=== PATIENT | female | born 1960 | race Caucasian/White ===

== ENCOUNTER 2016-09-10 03:05 | Emergency (ER) | payer OTHER ==
[~2016-09-10] VITALS: Ht 162.6 cm; Wt 72.6 kg
[~2016-09-10 03:05] MED LIST: ACET65TA; CALC500T49; CIPR500T19; COLA100C2; IBUP600T; No Historical Meds; VICO5TAB
[2016-09-10] MEDS ORDERED: OXYC1TAB23 PO (03:20)
[2016-09-10] MEDS ORDERED: OXYC15TA76 PO (03:24)
[2016-09-10] MEDS ORDERED: ASPI32ECTA (03:24)
[2016-09-10] MEDS ORDERED: ONDA4TAB6 (03:24)
[2016-09-10] MEDS ORDERED: GLYCERIN ADULT SUPP PR ONE (05:00)
[2016-09-10] MEDS ORDERED: LACTULOSE 20 GM/30 ML SYRUP UD PO ONE (05:00)
[2016-09-10 05:27] VITALS: BP 133/73
== END 2016-09-10 05:28 | disposition home or self-care (01) ==
LOC: M ED 04:31
DX: K59.03 Drug induced constipation (principal); M54.9 Dorsalgia, unspecified; N28.9 Disorder of kidney and ureter, unspecified; Z79.899 Other long term (current) drug therapy; Z79.82 Long term (current) use of aspirin; Z88.0 Allergy status to penicillin

== ENCOUNTER → 2017-06-03 | Outpatient (CLI) | payer OTHER | LOC: M WUC 14:39 | DX: S93.421A Sprain of deltoid ligament of right ankle, initial encounter (principal) | CPT/HCPCS: 73610 ==

== ENCOUNTER 2018-07-11 00:44 | Emergency (ER) | payer OTHER ==
[~2018-07-11] VITALS: Ht 162.6 cm; Wt 72.7 kg
[~2018-07-11 00:44] MED LIST changes: +ASPI-255; +ONDA4TAB6; +OXYC15TA76 PO; +OXYC1TAB23 PO
[2018-07-11 01:20] LABS: BASO # 0.1 10^3/uL (0.0-0.2); BASO % 0.7 % (0.0-1.0); EOS # 0.1 10^3/uL (0.0-0.50); HEMATOCRIT 40.6 % (36.0-47.0); HEMOGLOBIN 13.1 g/dl (12.0-15.5); LYMPH # 2.4 10^3/uL (1.5-4.5); LYMPH % 23.9 % (24.0-44.0); MEAN CORPUSCULAR HEMOGLOBIN 27.9 pg (27.0-33.0); MEAN CORPUSCULAR HGB CONC 32.3 g/dl (32.0-36.5); MEAN CORPUSCULAR VOLUME 86.6 fl (80.0-96.0); MONO # 0.9 10^3/uL (0.0-0.8); MONO % 8.6 % (0.0-5.0); NEUTROPHILS # 6.5 10^3/uL (1.8-7.7); NEUTROPHILS % 65.4 % (36.0-66.0); PLATELET COUNT, AUTOMATED 430 10^3/uL (150-450); RED BLOOD COUNT 4.69 10^6/uL (4.00-5.40)
[2018-07-11 01:51] LABS: ALBUMIN 4.4 GM/DL (3.2-5.2); ALT/SGPT 68 U/L (12-78); BILIRUBIN,DIRECT 0.2 MG/DL (0.0-0.2); BILIRUBIN,TOTAL 0.6 MG/DL (0.2-1.0); BLOOD UREA NITROGEN 15 MG/DL (7-18); CALCIUM LEVEL 10.1 MG/DL (8.5-10.1); CARBON DIOXIDE LEVEL 28 MEQ/L (21-32); CHLORIDE LEVEL 103 MEQ/L (98-107); CREATININE FOR GFR 0.88 MG/DL (0.55-1.30); GLOMERULAR FILTRATION RATE > 60.0 (>51); GLUCOSE, FASTING 109 MG/DL (70-100); LIPASE 150 U/L (73-393); POTASSIUM SERUM 4.1 MEQ/L (3.5-5.1); SODIUM LEVEL 137 MEQ/L (136-145); TOTAL PROTEIN 8.1 GM/DL (6.4-8.2)
[2018-07-11 02:03] LABS: APPEARANCE, URINE MANUAL CLEAR (CLEAR); COLOR, URINE MANUAL YELLOW (YELLOW)
[2018-07-11 02:05] LABS: GLUCOSE, URINE (UA) MANUAL NEGATIVE (NEGATIVE); PROTEIN, URINE MANUAL TRACE mg/dL (NEGATIVE)
[2018-07-11 02:06] LABS: BILIRUBIN, URINE MANUAL NEGATIVE (NEGATIVE); BLOOD URINE MANUAL POSITIVE (NEGATIVE); KETONE, URINE MANUAL NEGATIVE (NEGATIVE); LEUKOCYTE ESTERASE, URINE MAN POSITIVE (NEGATIVE); NITRITE, URINE MANUAL NEGATIVE (NEGATIVE); UROBILINOGEN, URINE MANUAL NORMAL (NORMAL)
[2018-07-11] MEDS ORDERED: ONDANSETRON 4MG/2ML VIAL (J2405) IV ONE (04:15)
[2018-07-11] MEDS ORDERED: NS 1,000 ML IV ONE (04:15)
[2018-07-11] MEDS ORDERED: KETOROLAC 30 MG/ML VIAL (J1885) IV ONE (04:15)
[2018-07-11] MEDS ORDERED: ISOVUE-370 76% 100ML VIAL (Q9967) As Ordered ONE (04:19)
--- NOTE | 2018-07-11 05:46 | REPVR ---
EXAM: CT Abdomen and Pelvis With Contrast EXAM DATE/TIME: 07/11/2018 4:12 AM CLINICAL HISTORY: 57 years old, female; Generalized abdominal pain TECHNIQUE: Imaging protocol: Axial computed tomography images of the abdomen and pelvis with intravenous contrast. Coronal and sagittal reformatted images were created and reviewed. Radiation optimization: All CT scans at this facility use at least one of these dose optimization techniques: automated exposure control; mA and/or kV adjustment per patient size (includes targeted exams where dose is matched to clinical indication); or iterative reconstruction. Contrast material: iso Contrast volume: 100 ml Contrast route: ac COMPARISON: No relevant prior studies available. FINDINGS: Lower thorax: The imaged lung bases are clear. ABDOMEN: Liver: The liver is unremarkable. No liver lesion is seen. The contour of the liver is smooth. No hepatomegaly is noted. Gallbladder and bile ducts: There has been a cholecystectomy. There is no fluid collection in the gallbladder fossa. No dilation of the intrahepatic bile ducts is noted. The common bile duct is mildly dilated and measures 7 mm in diameter at the level of the elias hepatis, but tapers to normal caliber at the level of the head of the pancreas, which can be a normal finding after cholecystectomy. Pancreas: There is a 5 mm water density lesion in the head of the pancreas, which is compatible with a cyst (image 50 of the axial series 201). The pancreas is otherwise normal in appearance. No dilation of the main pancreatic duct is present. Spleen: Normal. No splenomegaly is noted. Adrenals: Normal. No mass. Kidneys and ureters: There is a 6 mm calculus along the posterior aspect of the right renal pelvis (image 56 of the axial series 201). There is a mildly dilated right extrarenal pelvis. No stones are noted in the left kidney or in the ureters. There is a 5 mm simple cyst in the lower third of the left kidney. No solid renal mass is noted. There is no perinephric fluid collection. There are no wedge-shaped areas of low attenuation in the kidneys to suggest pyelonephritis. There is no renal abscess or perinephric fluid collection. Stomach and bowel: There is no evidence for a bowel obstruction, diverticulosis, diverticulitis, colitis, pneumatosis intestinalis, intussusception, volvulus, or perforated viscus. Appendix: Normal. There is no evidence for appendicitis. PELVIS: Bladder: The partially distended urinary bladder is unremarkable. No stones or masses are seen in the bladder. Reproductive: The uterus is anterverted and unremarkable. The ovaries are unremarkable. ABDOMEN and PELVIS: Intraperitoneal space: Normal. No free air. No fluid collection. Bones/joints: The imaged bony structures are intact. There is no suspicious osteolytic or osteoblastic lesion. Soft tissues: There is a tiny fat containing umbilical hernia. Vasculature: The abdominal aorta is normal in caliber and patent. The iliac arteries, common femoral arteries, renal arteries, celiac artery, superior mesenteric artery, and inferior mesenteric artery are patent. The renal veins, portal veins, splenic vein, superior mesenteric vein, and inferior mesenteric vein are patent. There are minimal atherosclerotic calcifications. Lymph nodes: Normal. No enlarged lymph nodes. IMPRESSION: 6 mm calculus along the posterior aspect of the right renal pelvis and a mildly dilated right extrarenal pelvis. COMMENT: Consistent with the [employer]'s Incidental Findings Committee Report (J Am Kymberly Radiol 2010): Unless the patient's specific circumstances suggest otherwise, any liver lesion 0.5 cm or less, any cystic kidney lesion less than 1.0 cm, and/or any adrenal lesion 1.0 cm or less not otherwise characterized in this report as possessing suspicious or indeterminate imaging features is/are highly likely to be benign and do not require follow-up imaging or biopsy. Electronically signed by: Neel Welch On 07/11/2018 05:46:08 AM
[2018-07-11] MEDS ORDERED: FLOM0.4C39 PO (06:40)
[2018-07-11] MEDS ORDERED: CIPR-249 PO (06:40)
[2018-07-11] MEDS ORDERED: COLA100C5 PO (06:41)
[2018-07-11] MEDS ORDERED: PERC5TAB12 PO (06:41)
[2018-07-11] MEDS ORDERED: OXYCODONE/APAP 5MG/325MG(BULK FOR ED) 1 TABLET PO ONE (06:45)
[2018-07-11] MEDS ORDERED: TAMSULOSIN 0.4 MG CAP PO ONE (06:45)
[2018-07-11] MEDS ORDERED: CIPROFLOXACIN 500 MG TAB PO ONE (06:45)
[2018-07-11 06:56] VITALS: BP 155/83
[2018-07-12] MEDS ORDERED: ZOFR4TAB16 PO (16:57)
== END 2018-07-11 07:07 | disposition home or self-care (01) ==
LOC: M ED 00:44
DX: N20.1 Calculus of ureter (principal); Z88.0 Allergy status to penicillin
CPT/HCPCS: 74177; 80048; 80076; 81000; 81001; 83690; 85025; 87086; 96374; 96375; 99284; J1885; J2405; Q9967

== ENCOUNTER 2018-07-12 16:40 | Emergency (ER) | payer OTHER ==
[~2018-07-12] VITALS: Ht 162.6 cm; Wt 72.7 kg
[~2018-07-12 16:40] MED LIST changes: +CIPR-249 PO; +COLA100C5 PO; +FLOM0.4C39 PO; +PERC5TAB12 PO
[2018-07-12] MEDS ORDERED: ZOFR4TAB16 PO (16:57)
[2018-07-12] MEDS ORDERED: METOCLOPRAMIDE INJ 10MG/2ML VIAL (J2765) IV ONE (18:15)
[2018-07-12] MEDS ORDERED: KETOROLAC 30 MG/ML VIAL (J1885) IV ONE (18:15)
--- NOTE | 2018-07-12 19:11 | REP ---
Clinical: Left flank pain. Technique: Real time figueroa scale ultrasound examination using curved array transducer. Findings: Bilateral kidneys are relatively normal in contour, size, and echogenicity without hydronephrosis, cystic or renal mass lesion. Right kidney measures 9.6 x 3.7 x 4.4 cm with small extrarenal pelvis. Left kidney measures 9.1 x 4.6 x 5.0 cm without hydronephrosis or nephrolithiasis. The bladder is under distended and grossly unremarkable. Impression: No hydronephrosis. Electronically Signed by Jon Chan MD 07/12/2018 07:02 P
[2018-07-12 20:02] LABS: BASO # 0.1 10^3/uL (0.0-0.2); BASO % 0.9 % (0.0-1.0); EOS # 0.3 10^3/uL (0.0-0.50); EOS % 3.5 % (0.0-3.0); HEMATOCRIT 37.3 % (36.0-47.0); HEMOGLOBIN 11.5 g/dl (12.0-15.5); LYMPH # 1.9 10^3/uL (1.5-4.5); LYMPH % 25.1 % (24.0-44.0); MEAN CORPUSCULAR HEMOGLOBIN 27.4 pg (27.0-33.0); MEAN CORPUSCULAR HGB CONC 30.8 g/dl (32.0-36.5); MONO # 0.5 10^3/uL (0.0-0.8); MONO % 6.9 % (0.0-5.0); NEUTROPHILS # 4.8 10^3/uL (1.8-7.7); NEUTROPHILS % 63.1 % (36.0-66.0); PLATELET COUNT, AUTOMATED 351 10^3/uL (150-450); RED BLOOD COUNT 4.19 10^6/uL (4.00-5.40); WHITE BLOOD COUNT 7.6 10^3/uL (4.0-10.0)
[2018-07-12 20:10] LABS: BLOOD UREA NITROGEN 12 MG/DL (7-18); CALCIUM LEVEL 9.1 MG/DL (8.5-10.1); CARBON DIOXIDE LEVEL 29 MEQ/L (21-32); CHLORIDE LEVEL 105 MEQ/L (98-107); CREATININE FOR GFR 0.78 MG/DL (0.55-1.30); GLOMERULAR FILTRATION RATE > 60.0 (>51); GLUCOSE, FASTING 96 MG/DL (70-100); POTASSIUM SERUM 3.7 MEQ/L (3.5-5.1); SODIUM LEVEL 138 MEQ/L (136-145)
[2018-07-12 20:51] VITALS: BP 125/80
== END 2018-07-12 21:10 | disposition home or self-care (01) ==
LOC: M ED 16:40
DX: N20.0 Calculus of kidney (principal); Z88.0 Allergy status to penicillin
CPT/HCPCS: 76775; 80048; 81001; 85025; 96374; 96375; 99284; J1885; J2765

== ENCOUNTER → 2019-06-12 | Outpatient (REF) | payer OTHER ==
[~2019-06-12] MED LIST changes: +ZOFR4TAB16 PO
== END ==
LOC: M LAB REF 12:36
PROVIDERS: ATTEND Nurse Practitioner Adult Health
DX: E83.52 Hypercalcemia (principal)

== ENCOUNTER → 2021-06-30 | Outpatient (CLI) | payer OTHER ==
[~2021-06-30] MED LIST changes: +OXYC-1 PO; -OXYC15TA76 PO
== END ==
LOC: M WHC 15:32
PROVIDERS: ATTEND Physician Assistant Medical
DX: Z12.31 Encounter for screening mammogram for malignant neoplasm of breast (principal); Z78.0 Asymptomatic menopausal state

== ENCOUNTER → 2022-10-19 | Outpatient (CLI) | payer OTHER | LOC: M WHC 07:29 | PROVIDERS: ATTEND Physician Assistant Medical | DX: Z12.31 Encounter for screening mammogram for malignant neoplasm of breast (principal) ==

== ENCOUNTER → 2024-01-30 | Outpatient (CLI) | payer OTHER ==
[~2024-01-30] MED LIST changes: +ONDA-282; -ONDA4TAB6
== END ==
LOC: M WHC 12:13
PROVIDERS: ATTEND Physician Assistant Medical
DX: Z12.31 Encounter for screening mammogram for malignant neoplasm of breast (principal); R92.313 Mammographic fatty tissue density, bilateral breasts

== ENCOUNTER 2024-03-25 06:37 | Day surgery (SDC) | payer OTHER ==
[~2024-03-25] VITALS: Ht 162.6 cm; Wt 86.6 kg
[~2024-03-25 06:37] MED LIST changes: +CETI-24 PO; +ENAL1TAB48 PO; +MONT-5 PO; +NS 250 ML IV ONE
[2024-03-25] MEDS ORDERED: SIMETHICONE 40MG/0.6ML DROPS 30ML As Ordered ONE (07:00)
[2024-03-25] MEDS ORDERED: propofoL 200 MG/20 ML VIAL As Ordered ONE (07:18)
[2024-03-25 08:16] VITALS: BP 115/74; O2SAT 98
== END 2024-03-25 08:25 | disposition home or self-care (01) ==
LOC: M OPP 06:37
PROVIDERS: ATTEND Internal Medicine Gastroenterology
DX: Z12.11 Encounter for screening for malignant neoplasm of colon (principal); K64.0 First degree hemorrhoids; K64.4 Residual hemorrhoidal skin tags; K57.30 Diverticulosis of large intestine without perforation or abscess without bleeding; I10 Essential (primary) hypertension; Z88.0 Allergy status to penicillin; Z88.5 Allergy status to narcotic agent; Z79.899 Other long term (current) drug therapy

== ENCOUNTER → 2024-05-17 | Outpatient (CLI) | payer OTHER ==
[~2024-05-17] MED LIST changes: -NS 250 ML IV ONE
== END ==
LOC: M WUC 12:10
PROVIDERS: ATTEND Physician Assistant Medical
DX: R05.9 Cough, unspecified (principal); R06.02 Shortness of breath

== ENCOUNTER → 2024-05-17 | Outpatient (REF) | payer OTHER | LOC: M LAB REF 12:23 | PROVIDERS: ATTEND Physician Assistant Medical | DX: R05.9 Cough, unspecified (principal) ==

== ENCOUNTER → 2024-05-17 | Outpatient (REF) | payer OTHER | LOC: M LAB REF 12:18 | PROVIDERS: ATTEND Physician Assistant Medical | DX: R05.9 Cough, unspecified (principal); R06.02 Shortness of breath ==

== ENCOUNTER → 2025-01-07 | Outpatient (CLI) | payer OTHER ==
[~2025-01-07] MED LIST changes: -FLOM0.4C39 PO; +TAMS-18 PO
== END ==
LOC: M RAD 17:51
PROVIDERS: ATTEND Physician Assistant
DX: R05.9 Cough, unspecified (principal)

== ENCOUNTER → 2025-02-05 | Outpatient (CLI) | payer OTHER | LOC: M WHC 08:07 | PROVIDERS: ATTEND Physician Assistant Medical | DX: Z12.31 Encounter for screening mammogram for malignant neoplasm of breast (principal); R92.323 Mammographic fibroglandular density, bilateral breasts ==